=== PATIENT | female | born 1985 | race Caucasian/White ===

== ENCOUNTER 2018-04-21 15:48 | Outpatient (CLI) | payer BC ==
[2018-04-21 16:11] LABS: BASOPHILS % (AUTO) 0.5 %; HGB - HEMOGLOBIN 12.2 g/dL (12.0-16.0); LYMPHOCYTES % (AUTO) 21.6 %; MEAN CORPUSCULAR HEMOGLOBIN 27.8 pg (27.0-31.0); MEAN CORPUSCULAR HGB CONC 33.5 g/dL (32.0-36.0); MEAN CORPUSCULAR VOLUME 82.8 fL (81.0-99.0); MEAN PLATELET VOLUME 10.2 fL (7.9-10.8); MONOCYTES # (AUTO) 0.8 10^3/uL (0.0-1.0); MONOCYTES % (AUTO) 9.1 %; NEUTROPHILS # (AUTO) 6.4 10^3/uL (1.5-6.6); NEUTROPHILS % (AUTO) 68.8 %; PLT - PLATELET COUNT 154 10^3/uL (130-450); RED CELL DISTRIBUTION WIDTH 15.3 % (12.0-15.0); WHITE BLOOD COUNT 9.3 x10^3/uL (4.8-10.8)
[2018-04-21 16:19] LABS: ALBUMIN 3.3 g/dL (3.2-5.5); ALKALINE PHOSPHATASE 114 IU/L (42-121); ALT ALANINE AMINOTRANSFERASE 18 IU/L (10-60); AST ASPARTATE AMINOTRANSFERASE 18 IU/L (10-42); BILIRUBIN,TOTAL < 0.2 mg/dL (0.2-1.0); BUN - BLOOD UREA NITROGEN 9 mg/dL (6-20); CALCIUM 9.1 mg/dL (8.5-10.3); CARBON DIOXIDE - CO2 21 mmol/L (21-32); CHLORIDE 105 mmol/L (101-111); CREATININE 0.6 mg/dL (0.4-1.0); GFR - MDRD 114 (>89); GLUCOSE 97 mg/dL (70-100); SODIUM 133 mmol/L (135-145); TOTAL PROTEIN 6.6 g/dL (6.7-8.2)
[2018-04-21 17:49] LABS: THYROID STIMULATING HORMONE < 0.08 uIU/mL (0.34-5.60)
== END 2018-04-21 15:49 | disposition home or self-care (01) ==
LOC: LAB 15:48
PROVIDERS: ATTEND Midwife
DX: O26.86 Pruritic urticarial papules and plaques of pregnancy (PUPPP) (principal); O12.03 Gestational edema, third trimester; Z34.03 Encounter for supervision of normal first pregnancy, third trimester
CPT/HCPCS: 36415; 80053; 82239; 84144; 84439; 84443; 85025

== ENCOUNTER 2018-10-01 09:45 | Outpatient (CLI) | payer BC | END 2018-10-01 09:46 | disposition home or self-care (01) | LOC: LAB.S 09:45 | PROVIDERS: ATTEND Naturopath | DX: E06.3 Autoimmune thyroiditis (principal); E34.9 Endocrine disorder, unspecified; D50.9 Iron deficiency anemia, unspecified | CPT/HCPCS: 36415; 82533; 82627; 82728; 84436; 84439; 84443; 84481 ==

== ENCOUNTER 2018-10-06 09:41 | Outpatient (CLI) | payer BC ==
[2018-10-06 17:32] LABS: THYROID STIMULATING HORMONE < 0.08 uIU/mL (0.34-5.60)
[2018-10-06 17:36] LABS: FREE T4 (FREE THYROXINE) 0.58 ng/dL (0.58-1.64)
[2018-10-06 17:39] LABS: FERRITIN 22.4 ng/mL (11.0-306.8)
== END 2018-10-06 09:42 | disposition home or self-care (01) ==
LOC: LAB.S 09:41
PROVIDERS: ATTEND Naturopath
DX: E06.3 Autoimmune thyroiditis (principal); E34.9 Endocrine disorder, unspecified; D50.9 Iron deficiency anemia, unspecified
CPT/HCPCS: 36415; 82533; 82627; 82728; 84439; 84443; 84481

== ENCOUNTER 2019-05-13 09:04 | Outpatient (CLI) | payer BC ==
[2019-05-13 17:24] LABS: BASOPHILS % (AUTO) 0.5 %; EOSINOPHILS % (AUTO) 0.5 %; HGB - HEMOGLOBIN 12.8 g/dL (12.0-16.0); LYMPHOCYTES # (AUTO) 2.1 10^3/uL (1.5-3.5); LYMPHOCYTES % (AUTO) 35.6 %; MEAN CORPUSCULAR HEMOGLOBIN 26.4 pg (27.0-31.0); MEAN CORPUSCULAR HGB CONC 30.9 g/dL (32.0-36.0); MEAN CORPUSCULAR VOLUME 85.4 fL (81.0-99.0); MEAN PLATELET VOLUME 12.6 fL (7.9-10.8); MONOCYTES # (AUTO) 0.4 10^3/uL (0.0-1.0); MONOCYTES % (AUTO) 6.5 %; NEUTROPHILS # (AUTO) 3.3 10^3/uL (1.5-6.6); NEUTROPHILS % (AUTO) 56.6 %; PLT - PLATELET COUNT 231 10^3/uL (130-450); RED BLOOD COUNT 4.85 10^6/uL (4.20-5.40); RED CELL DISTRIBUTION WIDTH 13.2 % (12.0-15.0); WHITE BLOOD COUNT 5.9 x10^3/uL (4.8-10.8)
[2019-05-13 17:42] LABS: CORTISOL 10.3 ug/dL
[2019-05-13 17:46] LABS: THYROID STIMULATING HORMONE < 0.08 uIU/mL (0.34-5.60)
[2019-05-13 17:47] LABS: FREE T4 (FREE THYROXINE) 0.65 ng/dL (0.58-1.64)
[2019-05-13 17:50] LABS: FERRITIN 24.5 ng/mL (11.0-306.8)
[2019-05-13 17:55] LABS: % IRON SATURATION 24 % (20-50); ALBUMIN 4.4 g/dL (3.2-5.5); ALBUMIN/GLOBULIN RATIO 1.8 (1.0-2.2); ALKALINE PHOSPHATASE 54 IU/L (42-121); ALT ALANINE AMINOTRANSFERASE 14 IU/L (10-60); AST ASPARTATE AMINOTRANSFERASE 15 IU/L (10-42); BILIRUBIN,TOTAL 0.5 mg/dL (0.2-1.0); BUN - BLOOD UREA NITROGEN 15 mg/dL (6-20); CALCIUM 9.6 mg/dL (8.5-10.3); CARBON DIOXIDE - CO2 24 mmol/L (21-32); CHLORIDE 110 mmol/L (101-111); CHOL/HDL RATIO 3.3 (<4.4); CHOLESTEROL 173 mg/dL; CREATININE 0.8 mg/dL (0.4-1.0); GFR - MDRD 82 (>89); GLUCOSE 78 mg/dL (70-100); HDL CHOLESTEROL 52 mg/dL; IRON 81 ug/dL (28-170); LDL CHOLESTEROL,CALCULATED 82 mg/dL; LDL/HDL RATIO 1.6 (<4.4); SODIUM 140 mmol/L (135-145); TOTAL IRON BINDING CAPACITY 333 ug/dL (250-450); TOTAL PROTEIN 6.9 g/dL (6.7-8.2); TRANSFERRIN 238 mg/dL (192-382); VLDL CHOLESTEROL 39 mg/dL
[2019-05-13 18:00] LABS: CRP HIGH SENSITIVITY < 0.5 mg/L
[2019-05-15 18:08] LABS: ANA SCREEN NEGATIVE (NEGATIVE)
== END 2019-05-13 09:05 | disposition home or self-care (01) ==
LOC: LAB.S 09:04
PROVIDERS: ATTEND Naturopath
DX: Z00.00 Encounter for general adult medical examination without abnormal findings (principal); E06.3 Autoimmune thyroiditis; L90.0 Lichen sclerosus et atrophicus; Z13.29 Encounter for screening for other suspected endocrine disorder
CPT/HCPCS: 36415; 80053; 80061; 81599; 82306; 82533; 82627; 82728; 83540; 83721; 84182; 84439; 84443; 84466; 84481; 85025; 86038; 86141; 86235

== ENCOUNTER 2019-11-27 09:25 | Outpatient (CLI) | payer BC ==
[2019-11-27 15:27] LABS: ALBUMIN 4.6 g/dL (3.2-5.5); ALBUMIN/GLOBULIN RATIO 1.9 (1.0-2.2); BILIRUBIN,TOTAL 0.6 mg/dL (0.2-1.0); CALCIUM 9.3 mg/dL (8.5-10.3); CREATININE 0.8 mg/dL (0.4-1.0)
[2019-11-27 15:38] LABS: THYROID STIMULATING HORMONE < 0.08 uIU/mL (0.34-5.60)
[2019-11-27 15:39] LABS: FREE T3 2.89 pg/mL (2.5-3.9)
[2019-11-27 15:40] LABS: FREE T4 (FREE THYROXINE) 0.68 ng/dL (0.58-1.64)
[2019-11-28 07:21] LABS: PROGESTERONE 12.9 ng/mL
== END 2019-11-27 09:26 | disposition home or self-care (01) ==
LOC: LAB.S 09:25
PROVIDERS: ATTEND Naturopath
DX: E06.3 Autoimmune thyroiditis (principal); E27.49 Other adrenocortical insufficiency; N92.6 Irregular menstruation, unspecified
CPT/HCPCS: 36415; 80053; 82533; 82627; 82670; 84144; 84439; 84443; 84481; 86376; 86800

== ENCOUNTER 2019-12-25 17:15 | Outpatient (CLI) | payer BC ==
[2019-12-25 19:57] LABS: BASOPHILS % (AUTO) 0.6 %; EOSINOPHILS % (AUTO) 0.1 %; HGB - HEMOGLOBIN 13.5 g/dL (12.0-16.0); LYMPHOCYTES # (AUTO) 2.2 10^3/uL (1.5-3.5); LYMPHOCYTES % (AUTO) 33.5 %; MEAN CORPUSCULAR HEMOGLOBIN 28.6 pg (27.0-31.0); MEAN CORPUSCULAR HGB CONC 33.1 g/dL (32.0-36.0); MEAN CORPUSCULAR VOLUME 86.4 fL (81.0-99.0); MEAN PLATELET VOLUME 12.7 fL (7.9-10.8); MONOCYTES # (AUTO) 0.4 10^3/uL (0.0-1.0); MONOCYTES % (AUTO) 6.3 %; NEUTROPHILS % (AUTO) 59.2 %; PLT - PLATELET COUNT 214 10^3/uL (130-450); RED BLOOD COUNT 4.72 10^6/uL (4.20-5.40); RED CELL DISTRIBUTION WIDTH 12.8 % (12.0-15.0); WHITE BLOOD COUNT 6.7 x10^3/uL (4.8-10.8)
[2019-12-25 20:34] LABS: % IRON SATURATION 15 % (20-50); IRON 46 ug/dL (28-170); TOTAL IRON BINDING CAPACITY 302 ug/dL (250-450); TRANSFERRIN 216 mg/dL (192-382)
== END 2019-12-25 17:16 | disposition home or self-care (01) ==
LOC: LAB.S 17:15
PROVIDERS: ATTEND Naturopath
DX: D50.9 Iron deficiency anemia, unspecified (principal)
CPT/HCPCS: 36415; 82728; 83540; 84466; 85025

== ENCOUNTER 2019-12-30 08:00 | Outpatient (CLI) | payer BC | END 2019-12-30 23:59 | disposition home or self-care (01) | LOC: LAB.R 08:00 | PROVIDERS: ATTEND Naturopath | DX: D86.2 Sarcoidosis of lung with sarcoidosis of lymph nodes (principal); E27.49 Other adrenocortical insufficiency | CPT/HCPCS: 81599; 82530 ==

== ENCOUNTER 2020-02-28 15:50 | Outpatient (CLI) | payer BC | END 2020-02-28 15:51 | disposition home or self-care (01) | LOC: LAB.S 15:50 | PROVIDERS: ATTEND Naturopath | DX: B27.90 Infectious mononucleosis, unspecified without complication (principal) | CPT/HCPCS: 36415; 81599; 86664; 86665 ==

== ENCOUNTER 2020-04-04 17:30 | Outpatient (CLI) | payer BC | END 2020-04-04 17:31 | disposition home or self-care (01) | LOC: LAB.S 17:30 | DX: Z53.9 Procedure and treatment not carried out, unspecified reason (principal) ==

== ENCOUNTER 2020-04-04 17:36 | Outpatient (CLI) | payer SELFPAY | END 2020-04-04 17:37 | disposition home or self-care (01) | LOC: LAB.S 17:36 | DX: K90.0 Celiac disease (principal); D80.2 Selective deficiency of immunoglobulin A [IgA]; R14.0 Abdominal distension (gaseous); R53.83 Other fatigue | CPT/HCPCS: 36415; 81599; 82610; 84590; 84630 ==

== ENCOUNTER 2020-05-03 09:54 | Outpatient (CLI) | payer BC | END 2020-05-03 09:55 | disposition home or self-care (01) | LOC: LAB.S 09:54 | DX: Z01.89 Encounter for other specified special examinations (principal) | CPT/HCPCS: 36415; 84590; 84630 ==

== ENCOUNTER 2020-06-24 17:19 | Outpatient (CLI) | payer BC | END 2020-06-24 17:20 | disposition home or self-care (01) | LOC: LAB.S 17:19 | PROVIDERS: ATTEND Naturopath | DX: A44.8 Other forms of bartonellosis (principal); R53.83 Other fatigue | CPT/HCPCS: 36415; 81599; 86611; 86753; 87471 ==

== ENCOUNTER 2020-07-13 08:00 | Outpatient (CLI) | payer BC | END 2020-07-13 23:59 | disposition home or self-care (01) | LOC: LAB.R 08:00 | PROVIDERS: ATTEND Physician Assistant | DX: J40 Bronchitis, not specified as acute or chronic (principal); Z20.822 Contact with and (suspected) exposure to COVID-19 ==

== ENCOUNTER 2020-07-20 10:36 | Outpatient (CLI) | payer BC ==
[2020-07-20 15:18] LABS: THYROID STIMULATING HORMONE < 0.08 uIU/mL (0.34-5.60)
[2020-07-20 15:20] LABS: FREE T3 2.77 pg/mL (2.5-3.9); FREE T4 (FREE THYROXINE) 0.71 ng/dL (0.58-1.64)
[2020-07-22 14:41] LABS: THYROID PEROXIDASE ANTIBODIES 1 IU/mL (<9)
== END 2020-07-20 10:37 | disposition home or self-care (01) ==
LOC: LAB.S 10:36
PROVIDERS: ATTEND Naturopath
DX: E06.3 Autoimmune thyroiditis (principal)
CPT/HCPCS: 36415; 84439; 84443; 84481; 86376; 86800

== ENCOUNTER 2020-07-25 07:00 | Outpatient (CLI) | payer BC ==
--- NOTE | 2020-07-25 18:37 | XRAY Report ---
PROCEDURE: Chest 2 View X-Ray INDICATIONS: BACTERIAL PNEUMONIA TECHNIQUE: 2 view(s) of the chest. COMPARISON: None. FINDINGS: Surgical changes and devices: None. Lungs and pleura: No pleural effusions or pneumothorax. Bilateral patchy pulmonary opacities are pre sent predominantly within the bases. Mediastinum: Mediastinal contours are normal. Heart size is normal. Bones and chest wall: No suspicious bony abnormalities. Soft tissues appear unremarkable. IMPRESSION: Bilateral pulmonary opacities as above most suggestive of pneumonia. Recommend interval follow-up to document resolution after appropriate therapy. No priors are available for comparison. Reviewed by: Riana Jarrett MD on 07/25/2020 6:36 PM PDT Approved by: Riana Jarrett MD on 07/25/2020 6:36 PM PDT Station ID: [id number]
== END 2020-07-25 23:59 | disposition home or self-care (01) ==
LOC: DI.S 07:00
PROVIDERS: ATTEND Emergency Medicine
DX: R91.8 Other nonspecific abnormal finding of lung field (principal)

== ENCOUNTER 2020-08-01 08:00 | Outpatient (CLI) | payer BC | END 2020-08-01 23:59 | disposition home or self-care (01) | LOC: LAB.S 08:00 | PROVIDERS: ATTEND Physician Assistant Medical | DX: R05 Cough (principal); Z20.822 Contact with and (suspected) exposure to COVID-19 | CPT/HCPCS: 87275; 87276 ==

== ENCOUNTER 2020-08-01 08:00 | Outpatient (CLI) | payer BC ==
--- NOTE | 2020-08-01 12:10 | XRAY Report ---
PROCEDURE: Chest 2 View X-Ray INDICATIONS: SHORTNESS OF BREATH TECHNIQUE: 2 view(s) of the chest. COMPARISON: 07/25/2020 2 view chest. FINDINGS: Surgical changes and devices: None. Lungs and pleura: No pleural effusions or pneumothorax. Lungs are abnormal with bilateral lung base pneumonia but the radiodensity of the pneumonia pattern on the left appears slightly improved.. Mediastinum: Mediastinal contours are normal. Heart size is normal. Bones and chest wall: No suspicious bony abnormalities. Soft tissues appear unremarkable. IMPRESSION: Bilateral lung base pneumonia, slight improvement at the left lower lobe. No pleural eff usion is associated. Reviewed by: Rick Kirkpatrick MD on 08/01/2020 12:09 PM PDT Approved by: Rick Kirkpatrick MD on 08/01/2020 12:09 PM PDT Station ID: [id number]
[2020-08-01 15:24] LABS: BASOPHILS # (AUTO) 0.1 10^3/uL (0.0-0.1); BASOPHILS % (AUTO) 0.6 %; EOSINOPHILS % (AUTO) 0.2 %; HCT - HEMATOCRIT 38.4 % (37.0-47.0); HGB - HEMOGLOBIN 11.6 g/dL (12.0-16.0); LYMPHOCYTES # (AUTO) 1.9 10^3/uL (1.5-3.5); LYMPHOCYTES % (AUTO) 17.8 %; MEAN CORPUSCULAR HEMOGLOBIN 25.3 pg (27.0-31.0); MEAN CORPUSCULAR HGB CONC 30.2 g/dL (32.0-36.0); MEAN CORPUSCULAR VOLUME 83.7 fL (81.0-99.0); MEAN PLATELET VOLUME 10.5 fL (7.9-10.8); MONOCYTES # (AUTO) 0.8 10^3/uL (0.0-1.0); MONOCYTES % (AUTO) 7.5 %; NEUTROPHILS # (AUTO) 7.8 10^3/uL (1.5-6.6); NEUTROPHILS % (AUTO) 72.5 %; PLT - PLATELET COUNT 463 10^3/uL (130-450); RED BLOOD COUNT 4.59 10^6/uL (4.20-5.40); RED CELL DISTRIBUTION WIDTH 13.1 % (12.0-15.0); WHITE BLOOD COUNT 10.8 x10^3/uL (4.8-10.8)
[2020-08-01 15:46] LABS: ALBUMIN 3.2 g/dL (3.2-5.5); ALBUMIN/GLOBULIN RATIO 0.8 (1.0-2.2); BILIRUBIN,TOTAL 0.4 mg/dL (0.2-1.0); CALCIUM 9.3 mg/dL (8.5-10.3); CREATININE 0.6 mg/dL (0.4-1.0); POTASSIUM 4.2 mmol/L (3.5-5.0); TOTAL PROTEIN 7.1 g/dL (6.7-8.2)
[2020-08-01 16:17] LABS: THYROID STIMULATING HORMONE < 0.08 uIU/mL (0.34-5.60)
[2020-08-01 16:56] LABS: FREE T4 (FREE THYROXINE) 0.74 ng/dL (0.58-1.64)
== END 2020-08-01 23:59 | disposition home or self-care (01) ==
LOC: DI.S 08:00
PROVIDERS: ATTEND Physician Assistant Medical
DX: J18.9 Pneumonia, unspecified organism (principal); R06.02 Shortness of breath; R07.89 Other chest pain; R05 Cough; Z20.822 Contact with and (suspected) exposure to COVID-19
CPT/HCPCS: 36415; 80053; 84439; 84443; 85025; 85651; 87275; 87276

== ENCOUNTER 2020-08-01 14:26 | Emergency (ER) | payer BC ==
--- OUTSIDE RECORDS SUMMARY | 2020-08-01 14:28 | EXTERNAL MEDICAL SUMMARY RPT | Continuity of Care Document ---
:1985 Demographics Phone Unavailable Preferred Language Unknown Marital Status Unknown Advent Affiliation Unknown Race Unknown Ethnic Group Unknown Author Organization [place] Address [address] [phone] Phone Care Team Providers Name Role Phone MD Unavailable Unavailable PA-C Unavailable Unavailable MA Unavailable Unavailable PA-C Unavailable Unavailable Tez Unavailable Unavailable Medications date description facility [id number] AZ[facility]CIN [facility] [place] [id number] BENZONATATE [facility] [place] [id number] BENZONATATE [facility] [place] [id number] AZITHROMYCIN [facility] [place] [id number] ALBUTEROL SULFATE [facility] [place] [id number] AMOXICILLIN-POT CLAVULANATE [facility] [place] [id number] ALBUTEROL SULFATE [facility] [place] [id number] AMOXICILLIN-POT CLAVULANATE [facility] [place] [phone] ALBUTEROL SULFATE [facility] [place] [phone] AMOXICILLIN-POT CLAVULANATE [facility] [place] [phone] ALBUTEROL SULFATE [facility] [place] [id number] AMOXICILLIN-POT CLAVULANATE [facility] [place] [phone] NALTREXONE [facility] [place] [phone] THYROID [facility] [place] [phone] NALTREXONE [facility] [place] [phone] THYROID [facility] [place] [phone] NALTREXONE [facility] [place] [id number] THYROID [facility] [place] [id number] NALTREXONE [facility] [place] [id number] THYROID [facility] [place] [id number] NALTREXONE [facility] [place] [id number] THYROID [facility] [place] [id number] NALTREXONE [facility] [place] [phone] THYROID [facility] [place] [phone] NALTREXONE [facility] [place] [phone] THYROID [facility] [place] [phone] NALTREXONE [facility] [place] [phone] THYROID [facility] [place] [phone] NALTREXONE [facility] [place] [phone] THYROID [facility] [place] [phone] NALTREXONE [facility] [place] [phone] THYROID [facility] [place] Problems date description facility [id number] Tobacco use and exposure [facility] [place] [id number] Tobacco smoking status NHIS [facility] [place] [id number] Never smoker [facility] [place] [id number] Details of drug misuse behavior [facility] [place] [id number] Alcohol use [facility] [place] [phone] Community acquired pneumonia Walk-In [facility] [place] [id number] Alcohol use [facility] [place] [id number] Unspecified bacterial pneumonia [facility] [place] [phone] Tobacco use and exposure [facility] [place] [phone] Tobacco smoking status NHIS [facility] [place] [phone] Never smoker [facility] [place] [id number] Details of drug misuse behavior [facility] [place] [id number] CHEST 2 VIEW-CWFD [facility] [place] [phone] Alcohol intake [facility] [place] [phone] Alcohol use [facility] [place] 20200713 Tobacco use and exposure [facility] 20200713 Never smoker Walk-[facility] 20200713 COVID19 Testing [facility] 20200713 Details of drug misuse behavior [facility] 20200713 Bronchitis, not specified as acute or Walk[facility]In [facility] 20200713 Alcohol intake [facility] 20200713 Tobacco smoking status NHIS [facility] [place] 20200713 Bronchitis Walk[facility] Procedures date description facility [id number] Albuterol 0.083% 2.5mg/3ml [facility] [place] [phone] Rocephin 1gm Inj Solr Walk[facility]In [facility] [place] [phone] Rocephin 1000 mg Walk[facility] [place] [phone] Albuterol 0.083% 2.5mg/3ml [facility] [place] [phone] Rocephin 1gm Inj Solr Walk[facility] P [facility] [place] [phone] Rocephin 1000 mg Walk[facility] [place] Results test status date ordered by attending specimen allison e _2018NCoV_COVID-19_Lab unknown 20200713 unknown unknown unknown _Test_Result_Text_ COVID-19_REFERENCE_TES unknown [id number] unknown unknown unknown T T unknown [id number] unknown unknown unknown _2019NCoV_COVID-19_Lab unknown [id number] unknown unknown unknown _Test_Result_Text_ COVID-19_REFERENCE_TES unknown [id number] unknown unknown unknown T T unknown [id number] unknown unknown unknown _2019NCoV_COVID-19_Lab unknown [id number] unknown unknown unknown _Test_Result_Text_ COVID-19_REFERENCE_TES unknown [id number] unknown unknown unknown T T unknown [id number] unknown unknown unknown facility observation status value reference units lab abnor mal line range code notes Walk-In _2019NCoV_CO unknown NEGATIVE unknown _6659 unkn own unknown Clinic VID-19_Lab_Te [address]_Result[facility] [place] Walk-In COVID-19_REF unknown NEGATIVE unknown COVID unkn own unknown Clinic ERENCE_TEST 19.REF [facility] [place] Walk-In T unknown NEGATIVE unknown COVID unknown u [facility] -19 [facility] [place] Walk-In _2019NCoV_CO unknown NEGATIVE unknown _6659 unkn own unknown Clinic VID-19_Lab_Te [address]_Result[facility] [facility] [place] Walk-In COVID-19_REF unknown NEGATIVE unknown COVID unkn own unknown Clinic ERENCE_TEST 19.REF [facility] [place] Walk-In T unknown NEGATIVE unknown COVID unknown u [facility] -19 [facility] [place] Walk-In _2019NCoV_CO unknown NEGATIVE unknown _6659 unkn own unknown Clinic VID-19_Lab_Te [address]_Result[facility] [facility] [place] Walk-In COVID-19_REF unknown NEGATIVE unknown COVID unkn own unknown Clinic ERENCE_TEST 19.REF [facility] [place] Walk-In T unknown NEGATIVE unknown COVID unknown u [facility] -19 [facility] [place] Vital Signs date measurement value source 20200713 weight_standard 160 lb 20200713 weight_metric 72.57 kg 20200713 temperature_standard 98.3 F 20200713 temperature_metric 36.83 C 20200713 respiration_rate 15 /min 20200713 height_standard 62 in 20200713 height_metric 157.48 cm 20200713 heart_rate 97 /min 20200713 BP_systolic 126 mm[Hg] 20200713 BP_diastolic 76 mm[Hg] 20200713 BMI 29.37 kg/m2 20200713 weight_standard 160 lb 20200713 weight_metric 72.57 kg 20200713 temperature_standard 98.3 F 20200713 temperature_metric 36.83 C 20200713 respiration_rate 15 /min 20200713 height_standard 62 in 20200713 height_metric 157.48 cm 20200713 heart_rate 97 /min 20200713 BP_systolic 126 mm[Hg] 20200713 BP_diastolic 76 mm[Hg] 20200713 BMI 29.37 kg/m2 20200713 weight_standard 160 lb 20200713 weight_metric 72.57 kg 20200713 temperature_standard 98.3 F 20200713 temperature_metric 36.83 C 20200713 respiration_rate 15 /min 20200713 height_standard 62 in 20200713 height_metric 157.48 cm 20200713 heart_rate 97 /min 20200713 BP_systolic 126 mm[Hg] 20200713 BP_diastolic 76 mm[Hg] 20200713 BMI 29.37 kg/m2 20200713 weight_standard 160 lb 20200713 weight_metric 72.57 kg 20200713 temperature_standard 98.3 F 20200713 temperature_metric 36.83 C 20200713 respiration_rate 15 /min 20200713 height_standard 62 in 20200713 height_metric 157.48 cm 20200713 heart_rate 97 /min 20200713 BP_systolic 126 mm[Hg] 20200713 BP_diastolic 76 mm[Hg] 20200713 BMI 29.37 kg/m2 20200725 weight_standard 161 lb 20200725 weight_metric 73.03 kg 20200725 temperature_standard 100 F 20200725 temperature_metric 37.78 C 20200725 respiration_rate 17 /min 20200725 height_standard 62 in 20200725 height_metric 157.48 cm 20200725 heart_rate 107 /min 20200725 BP_systolic 111 mm[Hg] 20200725 BP_diastolic 72 mm[Hg] 20200725 BMI 29.55 kg/m2 20200727 weight_standard 158 lb 20200727 weight_metric 71.67 kg 20200727 temperature_standard 100.6 F 20200727 temperature_metric 38.11 C 20200727 respiration_rate 22 /min 20200727 height_standard 62 in 20200727 height_metric 157.48 cm 20200727 heart_rate 110 /min 20200727 BP_systolic 128 mm[Hg] 20200727 BP_diastolic 81 mm[Hg] 20200727 BMI 29.00 kg/m2
--- OUTSIDE RECORDS SUMMARY | 2020-08-01 14:31 | EXTERNAL MEDICAL SUMMARY RPT | Continuity of Care Document ---
:1985 Demographics Phone Unavailable Preferred Language Unknown Marital Status Unknown Mandaeism Affiliation Unknown Race Unknown Ethnic Group Unknown Author Organization [facility] Address [address] [phone] Phone Care Team Providers Name Role Phone MD Unavailable Unavailable PA-C Unavailable Unavailable MA Unavailable Unavailable PA-C Unavailable Unavailable Tez Unavailable Unavailable Medications date description facility [id number] AZITHROMYCIN [facility] [place] [id number] BENZONATATE [facility] [place] [id number] BENZONATATE [facility] [place] [id number] AZITHROMYCIN [facility] [place] [phone] ALBUTEROL SULFATE [facility] [place] [id number] AMOXICILLIN-POT CLAVULANATE [facility] [place] [phone] ALBUTEROL SULFATE [facility] [place] [phone] AMOXICILLIN-POT CLAVULANATE [facility] [place] [phone] ALBUTEROL SULFATE [facility] [place] [phone] AMOXICILLIN-POT CLAVULANATE [facility] [place] [id number] ALBUTEROL SULFATE [facility] [place] [phone] AMOXICILLIN-POT CLAVULANATE [facility] [place] [phone] NALTREXONE [facility] [place] [phone] THYROID [facility] [place] [phone] NALTREXONE [facility] [place] [id number] THYROID [facility] [place] [phone] NALTREXONE [facility] [place] [phone] THYROID [facility] [place] [phone] NALTREXONE [facility] [place] [id number] THYROID [facility] [place] [phone] NALTREXONE [facility] [place] [phone] THYROID [facility] [place] [phone] NALTREXONE [facility] [place] [phone] THYROID [facility] [place] [phone] NALTREXONE [facility] [place] [phone] THYROID [facility] [place] [phone] NALTREXONE [facility] [place] [phone] THYROID [facility] [place] [phone] NALTREXONE [facility] [place] [phone] THYROID [facility] [place] [phone] NALTREXONE [facility] [place] [phone] THYROID [facility] [place] Problems date description facility [id number] Tobacco use and exposure [facility] [place] [phone] Tobacco smoking status NHIS [facility] [place] [id number] Never smoker [facility] [place] [id number] Details of drug misuse behavior [facility] [place] [phone] Alcohol use [facility] [place] [id number] Community acquired pneumonia Walk-In [facility] [place] [phone] Alcohol use [facility] [place] [phone] Unspecified bacterial pneumonia [facility] [place] [id number] Tobacco use and exposure [facility] [place] [id number] Tobacco smoking status NHIS [facility] [place] [phone] Never smoker [facility] [place] [phone] Details of drug misuse behavior [facility] [place] [id number] CHEST 2 VIEW-CWFD [facility] [place] [phone] Alcohol intake [facility] [place] [id number] Alcohol use [facility] [place] 20200713 Tobacco use and exposure [facility] 20200713 Never smoker Walk-In Clinic [facility] 20200713 COVID19 Testing Walk[facility]In Clinic [facility] 20200713 Details of drug misuse behavior [facility] 20200713 Bronchitis, not specified as acute or Walk[facility]In [facility] 20200713 Alcohol intake Walk[facility]In [facility] 20200713 Tobacco smoking status NHIS [facility] [place] 20200713 Bronchitis Walk[facility] Procedures date description facility [id number] Albuterol 0.083% 2.5mg/3ml [facility] [place] [id number] Rocephin 1gm Inj Solr Walk[facility] [place] [phone] Rocephin 1000 mg Walk[facility] [place] [phone] Albuterol 0.083% 2.5mg/3ml [facility] [place] [phone] Rocephin 1gm Inj Solr [facility] [place] [phone] Rocephin 1000 mg Walk[facility] [place] Results test status date ordered by attending specimen allison e _2018NCoV_COVID-19_Lab unknown 20200713 unknown unknown unknown _Test_Result_Text_ COVID-19_REFERENCE_TES unknown [id number] unknown unknown unknown T T unknown [id number] unknown unknown unknown _2019NCoV_COVID-19_Lab unknown [id number] unknown unknown unknown _Test_Result_Text_ COVID-19_REFERENCE_TES unknown [id number] unknown unknown unknown T T unknown [id number] unknown unknown unknown _2019NCoV_COVID-19_Lab unknown [id number] unknown unknown unknown _Test_Result_Text_ COVID-19_REFERENCE_TES unknown [id number] unknown unknown unknown T T unknown [id number] unknown unknown unknown facility observation status value reference units lab abnor mal line range code notes Walk-In _2019NCoV_CO unknown NEGATIVE unknown _6659 unkn own unknown Clinic VID-19_Lab_Te [address]_[facility] [place] Walk-In COVID-19_REF unknown NEGATIVE unknown COVID unkn own unknown Clinic ERENCE_TEST 19.REF [facility] [place] Walk-In T unknown NEGATIVE unknown COVID unknown u [facility] -19 [facility] [place] Walk-In _2019NCoV_CO unknown NEGATIVE unknown _6659 unkn own unknown Clinic VID-19_Lab_Te [address]_Result[facility] [place] Walk-In COVID-19_REF unknown NEGATIVE unknown COVID unkn own unknown Clinic ERENCE_TEST 19.REF [facility] [place] Walk-In T unknown NEGATIVE unknown COVID unknown u [facility] Clinic -19 [facility] [place] Walk-In _2019NCoV_CO unknown NEGATIVE unknown _6659 unkn own unknown Clinic VID-19_Lab_Te [address]_Result_[facility] [place] Walk-In COVID-19_REF unknown NEGATIVE unknown COVID unkn own unknown Clinic ERENCE_TEST 19.REF [facility] [place] Walk-In T unknown NEGATIVE unknown COVID unknown u [facility] -19 [facility] [place] [...]
[2020-08-01 14:43] VITALS: BP 126/79
== END 2020-08-01 15:48 | disposition left against medical advice (07) ==
LOC: ED 14:26
DX: Z53.21 Procedure and treatment not carried out due to patient leaving prior to being seen by health care provider (principal)

== ENCOUNTER 2020-09-12 17:13 | Outpatient (CLI) | payer BC ==
--- NOTE | 2020-09-12 17:31 | XRAY Report ---
PROCEDURE: Chest 2 View X-Ray INDICATIONS: POSITIVE VASCULITIS TECHNIQUE: 2 view(s) of the chest. COMPARISON: None. FINDINGS: Surgical changes and devices: None. Lungs and pleura: No pleural effusions or pneumothorax. Subtle ill-defined opacity in right lung bas e is seen suggestive of small infiltrate/atelectasis. Left lung is clear. Mediastinum: Mediastinal contours are normal. Heart size is normal. Bones and chest wall: No suspicious bony abnormalities. Soft tissues appear unremarkable. IMPRESSION: Subtle opacity in right lung base concerning for subtle infiltrate/atelectasis. No pleur al effusion or pneumothorax. Left lung is clear. Reviewed by: Ventura Horan MD on 09/12/2020 5:30 PM PDT Approved by: Ventura Horan MD on 09/12/2020 5:30 PM PDT Station ID: [id number]
== END 2020-09-12 17:14 | disposition home or self-care (01) ==
LOC: DI.S 17:13
PROVIDERS: ATTEND Internal Medicine
DX: R91.8 Other nonspecific abnormal finding of lung field (principal)

== ENCOUNTER 2020-10-28 15:45 | Outpatient (CLI) | payer BC ==
--- NOTE | 2020-10-28 16:03 | XRAY Report ---
PROCEDURE: Chest 2 View X-Ray INDICATIONS: COUGH/COMMON VARIABLE IMMUNODEFICIENCY TECHNIQUE: 2 view(s) of the chest. COMPARISON: CXR 09/12/2020, 08/01/2020. FINDINGS: Surgical changes and devices: None. Lungs and pleura: No pleural effusions or pneumothorax. Suspect mild airspace opacity in the left up per lobe. Mediastinum: Mediastinal contours are normal. Heart size is normal. Bones and chest wall: No suspicious bony abnormalities. Soft tissues appear unremarkable. IMPRESSION: Suspect mild airspace opacity in the left upper lobe. This is concerning for pneumonia. CT of the chest could be performed for further evaluation if clinically indicated. Reviewed by: Ino Patterson MD on 10/28/2020 4:02 PM PDT Approved by: Ino Patterson MD on 10/28/2020 4:02 PM PDT Station ID: [id number]
== END 2020-10-28 23:59 | disposition home or self-care (01) ==
LOC: DI.S 15:45
PROVIDERS: ATTEND Physician Assistant Medical
DX: R05 Cough (principal); R06.2 Wheezing; N28.9 Disorder of kidney and ureter, unspecified; D83.9 Common variable immunodeficiency, unspecified; Z20.822 Contact with and (suspected) exposure to COVID-19
CPT/HCPCS: 87086

== ENCOUNTER 2022-06-15 09:59 | Outpatient (CLI) | payer BC ==
[2022-06-15 14:44] LABS: BASOPHILS # (AUTO) 0.1 10^3/uL (0.0-0.1); BASOPHILS % (AUTO) 1.2 %; EOSINOPHILS # (AUTO) 0.3 10^3/uL (0.0-0.7); EOSINOPHILS % (AUTO) 5.2 %; HCT - HEMATOCRIT 40.9 % (37.0-47.0); HGB - HEMOGLOBIN 12.6 g/dL (12.0-16.0); LYMPHOCYTES # (AUTO) 2.1 10^3/uL (1.5-3.5); LYMPHOCYTES % (AUTO) 34.4 %; MEAN CORPUSCULAR HGB CONC 30.8 g/dL (32.0-36.0); MEAN CORPUSCULAR VOLUME 84.3 fL (81.0-99.0); MONOCYTES # (AUTO) 0.6 10^3/uL (0.0-1.0); MONOCYTES % (AUTO) 10.4 %; NEUTROPHILS # (AUTO) 2.9 10^3/uL (1.5-6.6); NEUTROPHILS % (AUTO) 48.3 %; RED BLOOD COUNT 4.85 10^6/uL (4.20-5.40); RED CELL DISTRIBUTION WIDTH 14.6 % (12.0-15.0)
[2022-06-15 15:07] LABS: FREE T3 3.41 pg/mL (2.5-3.9)
[2022-06-15 15:09] LABS: THYROID STIMULATING HORMONE < 0.08 uIU/mL (0.34-5.60)
[2022-06-15 15:10] LABS: FREE T4 (FREE THYROXINE) 0.49 ng/dL (0.58-1.64)
[2022-06-15 15:13] LABS: FERRITIN 35.4 ng/mL (11.0-306.8)
[2022-06-15 15:19] LABS: PLATELET ESTIMATE, MANUAL NORMAL (130-450,000) (NORMAL); PLATELET MORPHOLOGY PLATELET CLUMPING (NORMAL); SLIDE REVIEW? Indicated
[2022-06-15 15:37] LABS: ALBUMIN 3.9 g/dL (3.2-5.5); ALBUMIN/GLOBULIN RATIO 1.3 (1.0-2.2); BILIRUBIN,TOTAL 0.4 mg/dL (0.2-1.0); CALCIUM 8.9 mg/dL (8.5-10.3); CREATININE 0.8 mg/dL (0.4-1.0); TOTAL PROTEIN 6.9 g/dL (6.7-8.2)
[2022-06-19 17:09] LABS: THYROGLOBULIN ANTIBODY 182.3 IU/mL (0.0-0.9)
== END 2022-06-15 10:00 | disposition home or self-care (01) ==
LOC: LAB.S 09:59
PROVIDERS: ATTEND Naturopath
DX: E06.3 Autoimmune thyroiditis (principal); E61.1 Iron deficiency
CPT/HCPCS: 36415; 80053; 82728; 83540; 84439; 84443; 84466; 84481; 84482; 85025; 85651; 86376; 86800

== ENCOUNTER 2023-01-02 14:36 | Outpatient (CLI) | payer BC ==
[2023-01-02 20:16] LABS: ABSOLUTE RETICS # AUTO 0.108 10^6/uL (0.020-0.110); RED BLOOD COUNT 4.85 10^6/uL (4.20-5.40); RETICULOCYTE COUNT % (AUTO) 2.22 % (0.5-2.3)
[2023-01-02 21:17] LABS: CALCIUM 9.6 mg/dL (8.5-10.3); CREATININE 0.6 mg/dL (0.6-1.3); POTASSIUM 3.9 mmol/L (3.5-4.5)
== END 2023-01-02 14:37 | disposition home or self-care (01) ==
LOC: LAB.S 14:36
PROVIDERS: ATTEND Internal Medicine Rheumatology
DX: D50.9 Iron deficiency anemia, unspecified (principal); B27.00 Gammaherpesviral mononucleosis without complication; I77.82 Antineutrophilic cytoplasmic antibody [ANCA] vasculitis
CPT/HCPCS: 36415; 80048; 81001; 81599; 85045; 86880; 87086